=== PATIENT | female | born 1995 | race Two or more races ===

== ENCOUNTER 2020-08-05 19:05 | Emergency (ER) | payer OTHER, BC ==
[~2020-08-05] VITALS: Ht 152.4 cm; Wt 57.2 kg
--- NOTE | 2020-08-05 19:39 | NUR ---
patient resting in bed. s/o at bedside. in NAD. reports no bleeding at this time but states "it started last night around 11pm and we were having intercourse when it started". pt reports having spotting today of a "brown blood-like discharge". denies pain. also reports her [employer] intern notified her that she has a uterine tumor that is not concerning at this time. also c/o "pinching R abdomen at times" like when she jumps out of s/o truck or moving a certain way, coughing. warm blanket provided. call akbar in reach. safety maintained.
[2020-08-05] MEDS ORDERED: prenatal PO (19:44)
[2020-08-05 20:30] LABS: MICROSCOPIC NOT IND
--- NOTE | 2020-08-05 20:34 | NUR ---
patient resting in bed. in NAD. s/o at bedside. declines warm blanket at this time. requesting water but will hold off until after US. call akbar in reach. will continue to monitor.
--- NOTE | 2020-08-05 21:01 | NUR ---
patient back from [place]. in NAD. call akbar in reach
--- NOTE | 2020-08-05 21:50 | NUR ---
discharge instructions reviewed with patient and s/o at bedside. No further questions at this time. in NAD. all personal belongings with patient on dc. steady gait to lobby.
[2020-08-05 22:11] VITALS: BP 103/63
== END 2020-08-05 22:13 | disposition home or self-care (01) ==
LOC: ED 21:00
DX: O26.891 Other specified pregnancy related conditions, first trimester (principal); R10.2 Pelvic and perineal pain; Z3A.01 Less than 8 weeks gestation of pregnancy
CPT/HCPCS: 36415; 76801; 81003; 84702; 99284